=== PATIENT | female | born 1990 | race American Indian/Alaskan Native ===

== ENCOUNTER 2019-09-08 09:38 | Emergency (ER) | payer SELFPAY ==
[2019-09-08 10:06] VITALS: BP 151/91
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
== END 2019-09-08 10:55 | disposition left against medical advice (07) ==
LOC: ED 09:38
DX: L03.115 Cellulitis of right lower limb (principal); R51 Headache
CPT/HCPCS: 99282